=== PATIENT | female | born 1990 | race African-American/Black ===

== ENCOUNTER 2020-01-25 15:56 | Emergency (ER) | payer SELFPAY ==
[~2020-01-25] VITALS: Ht 174 cm; Wt 81.8 kg
[2020-01-25 16:41] VITALS: BP 161/93
--- NOTE | 2020-01-25 16:46 | PHYS DOC ---
Adult General Chief Complaint Chief Complaint: ANXIETY/PANIC ATTACK [facility] HPI Patient is a 29 year old female who presents to the emergency department with complaints of anxiety. Patient states she cannot get over the worry and fear that she or 1 of her family members is going to come down with the coronavirus that is currently impacting her nation. Patient denies any suicidal or homicidal ideations, she denies any suicide attempts within the last 12 months, and also denies any visual or auditory hallucinations. Patient states that her anxiety increases when she worries about her future. Patient states she is usually able to calm herself down by taking a walk outside. Patient states she was feeling better after getting out of her house, but she feels the anxiety is coming back now that she is at the hospital. Patient reports that this morning she felt nauseated and started to have some dry heaves but denies any vomiting, abdominal pain, or diarrhea. She denies any chest pain, shortness of breath, fever, cough, ear pain, sore throat, body aches, decreased sense of smell or taste. She denies any recent known exposure to the infection, she denies any recent travel. Patient states that she, her , and her son have been following the social distancing precautions that been put into place in [facility]. Patient currently denies any pain or complaints. Review of Systems Review of Systems Complete ROS is negative unless otherwise noted in HPI. Allergies Allergies Allergies Coded Allergies Type Severity Reaction Last Updated Verified No Known Drug Allergies 01/25/20 No Physical Exam Physical Exam See Above Constitutional: Well developed, well nourished, no acute distress, non-toxic appearance. [] HENT: Normocephalic, atraumatic, bilateral external ears normal, oropharynx moist, no oral exudates, nose normal. [] Eyes: PERRLA, EOMI, conjunctiva normal, no discharge. [] Neck: Normal range of motion, no stridor. [] Cardiovascular:Heart rate regular rhythm Lungs & Thorax: Bilateral breath sounds clear to auscultation, Respirations even and unlabored, no retractions, no respiratory distress[] Skin: Warm, dry, no erythema, no rash. [] Extremities: No cyanosis, ROM intact Neurologic: Alert and oriented X 3, no focal deficits noted. [] Psychologic: Affect normal, judgement normal, mood normal. [] Current Patient Data Vital Signs Vital Signs Date Time Temp Pulse Resp B/P (MAP) Pulse Ox O2 Delivery O2 Flow Rate FiO2 01/25/20 16:41 98.2 86 16 161/93 (115) 99 Room Air 98.2 Lab Values Laboratory Tests Test 01/25/20 16:13 POC Urine HCG, Qualitative Hcg negative (Negative) EKG EKG [] Radiology/Procedures Radiology/Procedures [] Course & Med Decision Making Course & Med Decision Making Pertinent Labs and Imaging studies reviewed. (See chart for details) [] Dragon Disclaimer Dragon Disclaimer This electronic medical record was generated, in whole or in part, using a voice recognition dictation system. Departure Departure Impression: Primary Impression: Anxiety about health Disposition: 01 HOME, SELF-CARE Condition: STABLE Referrals: NO PCP (PCP) Patient Instructions: Anxiety and Panic Attacks, [id number] Additional Instructions: Do your part to keep your family safe this includes following social distancing measures. Wash your hands, avoid sick people. Stay home unless you are required to go to work, need groceries, or to get medications. Follow up with your primary care doctor. Return to the ER if you start hearing voices or seeing things that are not there and if you have thoughts of wanting to hurt yourself or others. LAURA PIERRE APRN Jan 25, 2020 16:46
== END 2020-01-25 17:05 | disposition home or self-care (01) ==
LOC: ER 15:56
DX: F41.9 Anxiety disorder, unspecified (principal)
CPT/HCPCS: 81025; 99282

== ENCOUNTER 2022-03-12 19:41 | Emergency (ER) | payer SELFPAY ==
[~2022-03-12] VITALS: Ht 175.3 cm; Wt 77.3 kg
[2022-03-12 20:05] LABS: BASO % 0 % (0-3); EOS % 0 % (0-3); HEMATOCRIT 42.7 % (36.0-47.0); HEMOGLOBIN 14.9 g/dL (12.0-15.5); LYMPH # 1.3 x10^3/uL (1.0-4.8); LYMPH % 27 % (24-48); MEAN CORPUSCULAR HEMOGLOBIN 31 pg (25-35); MEAN CORPUSCULAR HGB CONC 35 g/dL (31-37); MEAN CORPUSCULAR VOLUME 89 fL (79-100); MONO # 0.4 x10^3/uL (0.0-1.1); MONO % 9 % (0-9); NEUT % 63 % (31-73); PLATELET COUNT 325 x10^3/uL (140-400); RED BLOOD COUNT 4.79 x10^6/uL (3.50-5.40); RED CELL DISTRIBUTION WIDTH 13.9 % (11.5-14.5); WHITE BLOOD COUNT 4.7 x10^3/uL (4.0-11.0)
[2022-03-12 20:24] LABS: CALCIUM 9.6 mg/dL (8.5-10.1); CREATININE 1.2 mg/dL (0.6-1.0); GFR 63.4; POTASSIUM 3.4 mmol/L (3.5-5.1)
[2022-03-12 20:28] LABS: AMPHETAMINE/METHAMPHETAMINE NEG (NEG); BARBITURATES NEG (NEG); BENZODIAZEPINES NEG (NEG); CANNABINOIDS POS (NEG); COCAINE NEG (NEG); METHADONE NEG (NEG); OPIATES NEG (NEG); PHENCYCLIDINE NEG (NEG)
[2022-03-12 20:29] LABS: BACTERIA,URINE MANY /HPF (0-FEW)
[2022-03-12 20:30] LABS: RBC,URINE OCC /HPF (0-2); WBC,URINE >40 /HPF (0-4)
[2022-03-12] MEDS ORDERED: hydrOXYzine IM 50 MG/ML VIAL IM ONE (20:30)
[2022-03-12 20:31] LABS: ALBUMIN 4.1 g/dL (3.4-5.0); ALBUMIN/GLOBULIN RATIO 1.1 (1.0-1.7); TOTAL BILIRUBIN 1.4 mg/dL (0.2-1.0)
--- NOTE | 2022-03-12 21:49 | PHYS DOC ---
Past Medical History Past Medical History: Anxiety, Asthma, Bipolar (with psychosis), Depression, Endometriosis Additional Past Medical Histor: was prescribed Latuda in the past, ADHD (LULU VALENCIA) Past Surgical History: No Surgical History (LULU VALENCIA) Smoking Status: Never Smoker Alcohol Use: Occasionally Drug Use: Marijuana, Other Social History Narrative: mushrooms (LULU VALENCIA) General Adult EDM: Chief Complaint: PSYCH EVALUATION HPI: HPI: Patient is a 32 year old female who presents via EMS after being found pulled over in her vehicle near a [place] about 15 minutes away seeking psychiatric evaluation and placement. Patient was hallucinating, and so she pulled over. Patient was released from [facility] 3 days ago (Wednesday). Her is in the room and aids in providing history. He states that in the past, when she "gets like this," he takes his son and leaves the home secondary to patient's violence and threatening behavior. Today, patient denies SI, HI. She admits to use of m arijuana and psychedelic mushrooms, however she states she has not used mushrooms since about 10 days ago. It is unknown the last time she used marijuana. Patient was at [facility] and discharged from there on Wednesday, 4 days ago. Per , she has been admitted involuntarily at [facility] in the past. Today, on her phone, there were videos that she recorded of herself driving around the city. At one point, she was in [place], [place], which is an area unfamiliar to her. Current medications may include propanolol, Strattera, Risperdal. (LULU VALENCIA) Review of Systems: Review of Systems: Constitutional: Denies fever, chills or generalized weakness Eyes: Denies change in visual acuity, visual field deficits or discharge HENT: Denies ear pain, nasal congestion or sore throat Respiratory: Denies cough or shortness of breath Cardiovascular: Denies chest pain, palpitations or edema GI: Denies abdominal pain, nausea, vomiting, bloody stools or diarrhea : Denies dysuria or hematuria Musculoskeletal: Denies back pain or joint pain Integument: Denies rash or other skin lesion Neurologic: Denies headache, focal weakness or sensory changes Psychiatric: See HPI (LULU VALENCIA) Heart Score: C/O Chest Pain: No (LULU VALENCIA) C/O Chest Pain: No (DESTIN ADAMS MD) C/O Chest Pain: No (LIZ FRANCO MD) Current Medications: Current Medications Medications (Trade) Dose Ordered Sig/Srinath Route PRN Reason Start Time Stop Time Status Last Admin Dose Admin Hydroxyzine HCl (Vistaril Im) 25 mg 1X ONCE IM 03/12/22 20:30 03/12/22 20:31 DC 03/12/22 20:16 Lorazepam (Ativan Inj) 1 mg 1X ONCE IVP 03/12/22 22:45 03/12/22 22:46 DC 03/12/22 22:50 (LULU VALENCIA) Allergies: Allergies: Allergies Coded Allergies Type Severity Reaction Last Updated Verified No Known Drug Allergies 01/25/20 No (LULU VALENCIA) Physical Exam: PE: Constitutional: Well developed, well nourished, no acute distress, non-toxic appearance. HENT: Normocephalic, atraumatic, bilateral external ears normal, oropharynx moist, no oral exudates, nose normal. Eyes: PERRL, EOMI, conjunctiva normal, no discharge. Neck: Normal range of motion, no stridor. Skin: Warm, dry, no erythema, no rash. Extremities: No tenderness, no cyanosis, no clubbing, ROM intact, no edema. Neurologic: Alert and oriented x4, normal motor function, normal sensory function, no focal deficits noted. Psychologic: Affect cooperative, poor judgment, fair insight. (LULU VALENCIA) Current Patient Data: Labs: Laboratory Tests Test 03/12/22 19:44 03/12/22 20:13 White Blood Count 4.7 x10^3/uL (4.0-11.0) Red Blood Count 4.79 x10^6/uL (3.50-5.40) Hemoglobin 14.9 g/dL (12.0-15.5) Hematocrit 42.7 % (36.0-47.0) Mean Corpuscular Volume 89 fL (79-100) Mean Corpuscular Hemoglobin 31 pg (25-35) Mean Corpuscular Hemoglobin Concent 35 g/dL (31-37) Red Cell Distribution Width 13.9 % (11.5-14.5) Platelet Count 325 x10^3/uL (140-400) Neutrophils (%) (Auto) 63 % (31-73) Lymphocytes (%) (Auto) 27 % (24-48) Monocytes (%) (Auto) 9 % (0-9) Eosinophils (%) (Auto) 0 % (0-3) Basophils (%) (Auto) 0 % (0-3) Neutrophils # (Auto) 3.0 x10^3/uL (1.8-7.7) Lymphocytes # (Auto) 1.3 x10^3/uL (1.0-4.8) Monocytes # (Auto) 0.4 x10^3/uL (0.0-1.1) Eosinophils # (Auto) 0.0 x10^3/uL (0.0-0.7) Basophils # (Auto) 0.0 x10^3/uL (0.0-0.2) Sodium Level 141 mmol/L (136-145) Potassium Level 3.4 mmol/L (3.5-5.1) L Chloride Level 105 mmol/L (98-107) Carbon Dioxide Level 20 mmol/L (21-32) L Anion Gap 16 (6-14) H Blood Urea Nitrogen 9 mg/dL (7-20) Creatinine 1.2 mg/dL (0.6-1.0) H Estimated GFR (Cockcroft-Gault) 63.4 BUN/Creatinine Ratio 8 (6-20) Glucose Level 157 mg/dL (70-99) H Calcium Level 9.6 mg/dL (8.5-10.1) Total Bilirubin 1.4 mg/dL (0.2-1.0) H Aspartate Amino Transferase (AST) 37 U/L (15-37) Alanine Aminotransferase (ALT) 17 U/L (14-59) Alkaline Phosphatase 67 U/L (46-116) Total Protein 8.0 g/dL (6.4-8.2) Albumin 4.1 g/dL (3.4-5.0) Albumin/Globulin Ratio 1.1 (1.0-1.7) Urine Collection Type Unknown Urine Color (Auto) Light orange Urine Turbidity Turbid Urine pH (Auto) 5.5 (<5.0-8.0) Urine Specific [place] 1.022 (1.000-1.030) Urine Protein (Auto) 70 mg/dL (Negative) Urine Glucose (Auto)(UA) Negative mg/dL (Negative) Urine Ketones (Auto) 10 mg/dL (Negative) Urine Blood (Auto) Trace (Negative) Urine Nitrite Negative (Negative) Urine Bilirubin (Auto) Negative (Negative) Urine Urobilinogen (Auto) Normal mg/dL (Normal) Urine Leukocyte Esterase (Auto) Large (Negative) Urine RBC Occ /HPF (0-2) Urine WBC >40 /HPF (0-4) Urine Squamous Epithelial Cells Many /LPF Urine Bacteria Many /HPF (0-FEW) Urine Mucus Marked /LPF Urine Opiates Screen Neg (NEG) Urine Methadone Screen Neg (NEG) Urine Barbiturates Neg (NEG) Urine Phencyclidine Screen Neg (NEG) Urine Amphetamine/Methamphetamine Neg (NEG) Urine Benzodiazepines Screen Neg (NEG) Urine Cocaine Screen Neg (NEG) Urine Cannabinoids Screen Pos (NEG) Urine Ethyl Alcohol Neg (NEG) Laboratory Tests 03/12/22 19:44 Laboratory Tests 03/12/22 19:44 Vital Signs: Vital Signs Date Time Temp Pulse Resp B/P (MAP) Pulse Ox O2 Delivery O2 Flow Rate FiO2 03/12/22 19:44 99.2 110 17 157/101 (119) 99 Room Air 99.2 (LULU VALENCIA) EKG: EKG: EKG Interpreted by Dr. Adams at 2028: Sinus tachycardia at 111 bpm with no ectopic beats. QT 334 ms/QTc 458 ms. No STEMI. (LULU VALENCIA) Course & Med Decision Making: Course & Med Decision Making Pertinent Labs and Imaging studies reviewed. (See chart for details) Patient was evaluated by Meme with the psychiatric assessment team. At this time, it has been determined that she is a danger to herself secondary to her psychotic behavior. Patient is pending COVID-19 PCR swab test result as well as placement upon my departure. Thorough handoff was given to Dr. Adams, attending in the emergency department. She will address any concerns and oversee psychiatric placement. (LULU VALENCIA) Course & Med Decision Making Accepted patient care at end of midlevel shift. Patient is medically cleared but pending COVID PCR for inpatient placement (DESTIN ADAMS MD) Course & Med Decision Making 32-year-old female with acute psychosis, seen by PAT team in the morning. Patient not a involuntary hold. Patient is stable for discharge home. Patient is mikaela for safety, she has never had suicidal ideation, homicidal ideation, she is not a threat to self or others. Confirmed this with the PAT team. Patient will be discharged home with outpatient follow-up with psychiatrist, she was recently discharged from a psychiatric unit. She is cleared for discharge. Patient was stable at the time of discharge. Patient will have close follow-up. (LIZ FRANCO MD) Dragon Disclaimer: Dragon Disclaimer: This electronic medical record was generated, in whole or in part, using a voice recognition dictation system. (LULU VALENCIA) Departure Departure Disposition: [facility] Referrals: NO PCP (PCP) LULU VALENCIA March 12, 2022 21:49 DESTIN ADAMS MD March 13, 2022 03:36 LIZ FRANCO MD March 13, 2022 12:07
[2022-03-13 05:10] VITALS: BP 139/85
--- NOTE | 2022-03-14 06:17 | EKG ---
[facility] [address] [place] [address] Test Date: 2022-03-12 Test Time: 20:20:10 Pat Name: EMA MERLOS Department: Room: Gender: F Supervisor Loading: : 1990 Requested By: LULU VALENCIA Order Number: [id number] Reading MD: Alberto Garces Measurements Intervals [place] Rate: 111 P: [place]: QRS: 62 QRSD: 84 T: 43 QT: 334 QTc: 458 Interpretive Statements SINUS TACHYCARDIA INCOMPLETE RIGHT BUNDLE BRANCH BLOCK Electronically Signed On 03-16-2022 10:16:40 CDT by Alberto Garces
== END 2022-03-13 12:28 | disposition home or self-care (01) ==
LOC: ER 19:41
DX: F23 Brief psychotic disorder (principal); Z20.822 Contact with and (suspected) exposure to COVID-19; J45.909 Unspecified asthma, uncomplicated; F31.9 Bipolar disorder, unspecified
CPT/HCPCS: 36415; 80053; 80307; 81001; 85025; 87086; 93005; 96372; 96374; 96376; 99284; J2060; J3410; U0003